=== PATIENT | male | born 1955 | race Caucasian/White ===

== ENCOUNTER 2022-08-17 01:28 | Emergency (ER) | payer MEDICARE ==
--- NOTE | 2022-08-17 01:43 | ERPHSYRPT ---
- History of Present Illness Time Seen by Provider: 08/17/22 01:42 Source: patient Exam Limitations: no limitations Physician History: Pt c/o bleeding from the nose. Started bleeding around 8pm, unable to get it to stop w/ direct pressure No h/o bleeding disorders. On anticoagulation (Eliquis), care home held this evenings dose Denies easy bruising or gum bleeding. Timing/Duration: abrupt onset Severity: moderate ENT Location: nose Prearrival Treatment: squeezing nostrils Modifying Factors: Improves With: nothing Associated Symptoms: epistaxis, No dizziness Allergies/Adverse Reactions: cephalexin [From Keflex] Allergy (Verified 08/17/22 01:32) sertraline Allergy (Verified 08/17/22 01:31) Sulfa (Sulfonamide Antibiotics) Allergy (Verified 08/17/22 01:32) Home Medications: Apixaban [Eliquis 2.5 mg Tablet] 2.5 mg PO BID 08/17/22 [History] Atorvastatin Calcium 80 mg PO DAILY 08/17/22 [History] Bisacodyl 10 mg [Dulcolax 10 MG SUPP] 10 mg [place] DAILY PRN PRN 08/17/22 [History] Carvedilol 3.125 mg [Coreg 3.125 MG] 3.125 mg PO QHS 08/17/22 [History] Finasteride 5 mg [Proscar 5 MG] 5 mg PO DAILY 08/17/22 [History] Gabapentin 100 mg PO DAILY 08/17/22 [History] Magnesium Hydroxide [Milk of Magnesia] 30 ml PO DAILY PRN PRN 08/17/22 [History] Melatonin 3 mg PO QHS 08/17/22 [History] Nystatin 1 applic TOP BID 08/17/22 [History] Oxycodone HCl 5 mg PO BID PRN 08/17/22 [History] Petrolatum,White [Aquaphor] 1 applic TOP BID 08/17/22 [History] Polyethylene Glycol 3350 [Clearlax] 17 g PO BID 08/17/22 [History] Sodium Chloride [Saline Nasal Hamilton] 1 spray IN QID PRN 08/17/22 [History] Sodium Phosphate,Phillips-Dibasic [Fleet Enema] 1 applic [place] DAILY PRN PRN 08/17/22 [History] - Review of Systems Constitutional: No Symptoms Eyes: No Symptoms Ears, Nose, & Throat: Epistaxis Respiratory: No Symptoms Cardiac: No Symptoms Abdominal/Gastrointestinal: No Symptoms Genitourinary Symptoms: No Symptoms Musculoskeletal: No Symptoms Skin: No Symptoms Neurological: No Symptoms Psychological: No Symptoms Endocrine: No Symptoms Hematologic/Lymphatic: No Symptoms Immunological/Allergic: No Symptoms All Other Systems: Reviewed and Negative - Nursing Vital Signs Nursing Vital Signs: Initial Vital Signs Temperature 97.4 F 08/17/22 01:40 Pulse Rate 84 08/17/22 01:40 Respiratory Rate 18 08/17/22 01:40 Blood Pressure 140/68 08/17/22 01:40 O2 Sat by Pulse Oximetry 96 08/17/22 01:40 Pain Scale Pain Intensity 0 - Physical Exam General Appearance: no apparent distress Eye Exam: bilateral eye: normal inspection, PERRL, EOMI Nasal Exam: active bleeding (large clots noted in left nostril) Throat Exam: normal, pharynx normal Neck Exam: normal inspection Cardiovascular/Respiratory Exam: chest non-tender, normal breath sounds, regular rate/rhythm Abdominal Exam: non-tender, soft Neurologic Exam: alert, oriented x 3, cooperative Skin Exam: normal color, warm, other (pressure injury on buttocks) SpO2 Interpretation: normal O2 Delivery: Room Air Procedures - Additional Procedures Progress: Irrigation of left nasal septum Exam of nasal membrane revealed large clots in left nares NaCl flushed through nares, 2 large clots expressed, no active bleeding noted after re-evaluation Patient tolerated procedure well. No need for expandable nasal sponge. - Course Nursing assessment & vital signs reviewed: Yes Ordered Tests: Active Orders 24 hr Category Date Time Status Apply Nose Clip STAT Care 08/17/22 01:46 Active Epistaxis Set Up STAT Care 08/17/22 01:46 Active CBC W DIFF Stat Lab 08/17/22 02:01 Completed CMP Stat Lab 08/17/22 02:01 Completed PROTIME WITH INR Stat Lab 08/17/22 02:00 Completed PTT Stat Lab 08/17/22 02:01 Completed Medication Summary Discontinued Medications Generic Name Dose Route Start Last Admin Trade Name Freq PRN Reason Stop Dose Admin Phenylephrine HCl 15 ml 08/17/22 01:46 08/17/22 03:37 Neosynephrine 0.5% Nasal Hamilton/Drops NS 08/17/22 01:47 15 ml STAT ONE Administration Phenylephrine HCl Confirm 08/17/22 03:36 Neosynephrine 0.5% Nasal Hamilton/Drops Administered 08/17/22 03:37 Dose 15 ml .ROUTE .STK-MED ONE Silver Nitrate 1 pkt 08/17/22 01:46 Silver Nitrate 1 Pkt Each TP 08/17/22 01:47 STAT ONE Silver Nitrate Confirm 08/17/22 02:26 Silver Nitrate 1 Pkt Each Administered 08/17/22 02:27 Dose 1 pkt TP .STK-MED ONE Silver Nitrate Confirm 08/17/22 02:27 Silver Nitrate 1 Pkt Each Administered 08/17/22 02:28 Dose 2 pkt TP .STK-MED ONE Lab/Rad Data: Laboratory Result Diagrams 08/17/22 02:01 08/17/22 02:01 Laboratory Results 08/17/22 08/17/22 08/17/22 Range/Units 02:01 02:01 02:01 WBC 2.3 L (4.0-10.5) x10^3/uL RBC 3.00 L (4.1-5.6) x10^6/uL Hgb 9.1 L (12.5-18.0) g/dL Hct 29.9 L (42-50) % MCV 99.7 (78-100) fL MCH 30.3 (26-32) pg MCHC 30.4 L (32-36) g/dL RDW 15.1 H (11.5-14.0) % Plt Count 48 L (150-450) x10^3/uL MPV 10.1 (7.5-11.0) fL Gran % 47.6 (36.0-66.0) % Immature Gran % (Auto) 0.0 (0.00-0.4) % Nucleat RBC Rel Count 0.0 (0.00-0.1) % Eos # (Auto) 0.12 (0-0.5) x10^3/uL Immature Gran # (Auto) 0.00 (0.00-0.03) x10^3u/L Absolute Lymphs (auto) 0.85 L (1.0-4.6) x10^3/uL Absolute Monos (auto) 0.20 (0.0-1.3) x10^3/uL Absolute Nucleated RBC 0.00 (0.00-0.01) x10^3u/L Lymphocytes % 37.4 (24.0-44.0) % Monocytes % 8.8 (0.0-12.0) % Eosinophils % 5.3 H (0.00-5.0) % Basophils % 0.9 (0.0-0.4) % Absolute Granulocytes 1.08 L (1.4-6.9) x10^3/uL Basophils # 0.02 (0-0.4) x10^3/uL PT (9.4-12.5) SECONDS INR (0.8-3.0) APTT 30.5 (25.1-36.5) SECONDS Sodium 139 (137-145) mmol/L Potassium 3.5 (3.5-5.1) mmol/L Chloride 100 (98-107) mmol/L Carbon Dioxide 31 H (22-30) mmol/L Anion Gap 11.2 (5-15) MEQ/L BUN 42 H (9-20) mg/dL Creatinine 4.45 H (0.66-1.25) mg/dL Estimated GFR 14.1 ML/MIN Glucose 115 H (74-106) mg/dL Calcium 8.3 L (8.4-10.2) mg/dL Total Bilirubin 1.40 H (0.2-1.3) mg/dL AST 67 H (17-59) U/L ALT 31 (0-50) U/L Alkaline Phosphatase 220 H (38-126) U/L Serum Total Protein 7.2 (6.3-8.2) g/dL Albumin 3.0 L (3.5-5.0) g/dL 08/17/22 Range/Units 02:00 WBC (4.0-10.5) x10^3/uL RBC (4.1-5.6) x10^6/uL Hgb (12.5-18.0) g/dL Hct (42-50) % MCV (78-100) fL MCH (26-32) pg MCHC (32-36) g/dL RDW (11.5-14.0) % Plt Count (150-450) x10^3/uL MPV (7.5-11.0) fL Gran % (36.0-66.0) % Immature Gran % (Auto) (0.00-0.4) % Nucleat RBC Rel Count (0.00-0.1) % Eos # (Auto) (0-0.5) x10^3/uL Immature Gran # (Auto) (0.00-0.03) x10^3u/L Absolute Lymphs (auto) (1.0-4.6) x10^3/uL Absolute Monos (auto) (0.0-1.3) x10^3/uL Absolute Nucleated RBC (0.00-0.01) x10^3u/L Lymphocytes % (24.0-44.0) % Monocytes % (0.0-12.0) % Eosinophils % (0.00-5.0) % Basophils % (0.0-0.4) % Absolute Granulocytes (1.4-6.9) x10^3/uL Basophils # (0-0.4) x10^3/uL PT 13.2 H (9.4-12.5) SECONDS INR 1.27 (0.8-3.0) APTT (25.1-36.5) SECONDS Sodium (137-145) mmol/L Potassium (3.5-5.1) mmol/L Chloride (98-107) mmol/L Carbon Dioxide (22-30) mmol/L Anion Gap (5-15) MEQ/L BUN (9-20) mg/dL Creatinine (0.66-1.25) mg/dL Estimated GFR ML/MIN Glucose (74-106) mg/dL Calcium (8.4-10.2) mg/dL Total Bilirubin (0.2-1.3) mg/dL AST (17-59) U/L ALT (0-50) U/L Alkaline Phosphatase (38-126) U/L Serum Total Protein (6.3-8.2) g/dL Albumin (3.5-5.0) g/dL - Progress Progress: improved Progress Note: Patient responded well to NaCl irrigation, Phenylephrine spray and direct pressure. No active bleeding noted on repeat exam. Advised patient to apply Vaseline to b/l nares QD as well as use NaCl spray QD. 08/17/22 04:36 - Departure Departure Disposition: Extended Care Facility Clinical Impression: Epistaxis Condition: Good Critical Care Time: No Instructions: Nosebleeds (DC) Additional Instructions: You have been evaluated in the Emergency Department today for your nosebleed. Your bleeding was controlled in the ER with irrigation, phenylephrine and direct pressure. Your bleeding was most likely caused by dry and fragile skin inside your nose. Hold Eliquis for the next 2 days. Please follow up with your primary care physician within two days. Return to the Emergency Department if you experience worsening or uncontrolled bleeding, shortness of breath, feeling lightheaded or dizzy, loss of consciousness, fainting, nausea or vomiting, chest pain, or for any other c oncerning symptoms. Thank you for choosing us for your care.
[2022-08-17] MEDS ORDERED: NEOSYNEPHRINE 0.5% NASAL SPRAY/DROPS NS ONE (01:46)
[2022-08-17] MEDS ORDERED: ARZOL Silver Nitrate Applicator TP ONE ×3 (01:46→02:27)
[2022-08-17 01:57] VITALS: PULSE 84; O2SAT 96
[2022-08-17 02:06] LABS: Absolute Neutrophil Ct (ANC) 1.08 x10^3/uL (1.4-6.9); BASOPHIL % 0.9 % (0.0-0.4); Basophil (Absolute #) 0.02 x10^3/uL (0-0.4); Eosinophil % 5.3 % (0.00-5.0); Eosinophil (Absolute #) 0.12 x10^3/uL (0-0.5); Hematocrit 29.9 % (42-50); Hemoglobin 9.1 g/dL (12.5-18.0); Lymphocyte (Absolute #) 0.85 x10^3/uL (1.0-4.6); Lymphocytes % 37.4 % (24.0-44.0); Mean Cell Volume 99.7 fL (78-100); Mean Corpuscular Hemoglobin 30.3 pg (26-32); Mean Corpuscular Hgb Concent. 30.4 g/dL (32-36); Mean Platelet Volume 10.1 fL (7.5-11.0); Monocytes % 8.8 % (0.0-12.0); Neutrophil % 47.6 % (36.0-66.0); Platelet Count 48 x10^3/uL (150-450); Red Cell Distribution Width 15.1 % (11.5-14.0); White Blood Count 2.3 x10^3/uL (4.0-10.5)
[2022-08-17 02:21] LABS: ANION GAP 11.2 MEQ/L (5-15); BILIRUBIN,TOTAL 1.4 mg/dL (0.2-1.3); Calcium 8.3 mg/dL (8.4-10.2); Creatinine 1 4.45 mg/dL (0.66-1.25); EST GLOMERULAR FILTRATION RATE 14.1 ML/MIN; Potassium 3.5 mmol/L (3.5-5.1); Total Protein 7.2 g/dL (6.3-8.2)
[2022-08-17 02:40] LABS: INR 1.27 (0.8-3.0); PROTIME 13.2 SECONDS (9.4-12.5)
[2022-08-17] MEDS ORDERED: NEOSYNEPHRINE 0.5% NASAL SPRAY/DROPS ONE (03:36)
[2022-08-17 04:32] VITALS: BP 127/58
== END 2022-08-17 05:00 | disposition home or self-care (01) ==
LOC: ED 01:28
DX: R04.0 Epistaxis (principal); Z79.899 Other long term (current) drug therapy; Z79.01 Long term (current) use of anticoagulants
CPT/HCPCS: 36415; 80053; 85025; 85610; 85730; 99283; A9270-GY